=== PATIENT | female | born 1985 | race Caucasian/White ===

== ENCOUNTER 2020-08-11 00:20 | Emergency (ER) | payer OTHER ==
[~2020-08-11] VITALS: Ht 152.4 cm; Wt 49.9 kg
[2020-08-11 02:10] VITALS: BP 146/80
== END 2020-08-11 02:08 | disposition home or self-care (01) ==
LOC: ER 00:20
DX: T74.21XA Adult sexual abuse, confirmed, initial encounter (principal); R10.2 Pelvic and perineal pain; R45.6 Violent behavior; R45.1 Restlessness and agitation; J45.909 Unspecified asthma, uncomplicated; G35 Multiple sclerosis; Z88.1 Allergy status to other antibiotic agents; Z88.6 Allergy status to analgesic agent; Y07.50 Unspecified non-family member, perpetrator of maltreatment and neglect

== ENCOUNTER 2021-04-10 18:20 | Emergency (ER) | payer OTHER ==
[~2021-04-10] VITALS: Ht 160 cm; Wt 54.4 kg
[2021-04-10] MEDS ORDERED: GABAPENTIN100 MG PO (18:28)
[2021-04-10] MEDS ORDERED: TRAZODONE HCL50 MG PO (18:28)
[2021-04-10] MEDS ORDERED: HYDROXYZINE HCL25 M2 PO (18:29)
[2021-04-10 20:20] VITALS: BP 107/65
== END 2021-04-10 20:20 | disposition home or self-care (01) ==
LOC: ER 18:20
DX: S60.222A Contusion of left hand, initial encounter (principal); S50.02XA Contusion of left elbow, initial encounter; S60.221A Contusion of right hand, initial encounter; S60.211A Contusion of right wrist, initial encounter; J45.909 Unspecified asthma, uncomplicated; N18.1 Chronic kidney disease, stage 1; Z79.899 Other long term (current) drug therapy; Z79.891 Long term (current) use of opiate analgesic; Z88.1 Allergy status to other antibiotic agents; Z88.8 Allergy status to other drugs, medicaments and biological substances; Z88.5 Allergy status to narcotic agent; Z88.6 Allergy status to analgesic agent; Z91.013 Allergy to seafood; Z87.891 Personal history of nicotine dependence; V00.131A Fall from skateboard, initial encounter; Y93.89 Activity, other specified; Y92.89 Other specified places as the place of occurrence of the external cause; Y99.8 Other external cause status